=== PATIENT | female | born 1990 | race American Indian/Alaskan Native ===

== ENCOUNTER 2021-12-20 21:09 | Emergency (ER) | payer SELFPAY | END 2021-12-20 23:00 | disposition left against medical advice (07) | LOC: ED 21:09 | DX: M54.2 Cervicalgia (principal); M54.9 Dorsalgia, unspecified; Z53.21 Procedure and treatment not carried out due to patient leaving prior to being seen by health care provider ==

== ENCOUNTER 2021-12-21 05:46 | Emergency (ER) | payer SELFPAY ==
[2021-12-21 07:48] VITALS: BP 141/95
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
== END 2021-12-21 09:45 | disposition home or self-care (01) ==
LOC: ED 05:46
DX: S13.4XXA Sprain of ligaments of cervical spine, initial encounter (principal); S39.012A Strain of muscle, fascia and tendon of lower back, initial encounter; Z79.899 Other long term (current) drug therapy; V89.2XXA Person injured in unspecified motor-vehicle accident, traffic, initial encounter; Y93.89 Activity, other specified; Y92.488 Other paved roadways as the place of occurrence of the external cause; Y99.8 Other external cause status
CPT/HCPCS: 72040; 72100; 99283